=== PATIENT | female | born 1945 | race Asian ===

== ENCOUNTER → 2020-11-19 | Outpatient (CLI) | payer MEDICARE | LOC: M WHC 14:23 | PROVIDERS: ATTEND Internal Medicine | DX: Z12.31 Encounter for screening mammogram for malignant neoplasm of breast (principal) ==

== ENCOUNTER → 2022-05-09 | Outpatient (CLI) | payer MEDICARE | LOC: M WUC 10:41 | PROVIDERS: ATTEND Internal Medicine | DX: M25.761 Osteophyte, right knee (principal); M67.261 Synovial hypertrophy, not elsewhere classified, right lower leg; M25.561 Pain in right knee ==

== ENCOUNTER → 2023-06-21 | Outpatient (CLI) | payer MEDICARE | LOC: M WHC 11:19 | PROVIDERS: ATTEND Internal Medicine | DX: Z12.31 Encounter for screening mammogram for malignant neoplasm of breast (principal) ==

== ENCOUNTER → 2024-12-17 | Outpatient (CLI) | payer MEDICARE | LOC: M WHC 11:48 | PROVIDERS: ATTEND Internal Medicine | DX: Z12.31 Encounter for screening mammogram for malignant neoplasm of breast (principal) ==